=== PATIENT | female | born 1990 | race Caucasian/White ===

== ENCOUNTER 2023-09-13 18:05 | Day surgery (SDC) | payer OTHER, SELFPAY ==
[2023-09-13] VITALS (7 sets, daily range): BP systolic 114–128; BP diastolic 65–86; PULSE 71–104; RESP 14–18; TEMP 36.4–36.7; O2SAT 98–100; BMI 28.3
[2023-09-13 18:33] LABS: Bacteria 0 SEEN /hpf (None Seen); Mucous, Urine 0 SEEN /hpf (<or=2+); Red Blood Cells-Urine 0 SEEN /hpf (0-5)
[2023-09-13 18:34] LABS: Color, Urine Yellow (Yellow); Glucose, Dipstick Normal (Normal); Ketone-Dipstick Negative (Negative); Leukocyte Esterase-Dipstick 25 /ul (Negative); Nitrite-Dipstick Negative (Negative); Occult Blood-Urine 50 /ul (Negative); Protein-Dipstick Negative (Negative); Specific Gravity, Urine 1.005 (1.002-1.030); Urine Bilirubin Dipstick Negative (Negative); Urine Clarity Clear (Clear); Urine Urobilinogen Normal (Normal); Urine pH 6.5 (5.0 - 8.0)
[2023-09-13 18:39] LABS: Internal QC Validated? YES +Cl - CLEAR BKGD; Pregnancy, Urine Negative Negative; Squamous Epithelial Cells - UA 0-5 SEEN /hpf (5-10); White Blood Cells 0-5 SEEN /hpf (0-5)
[2023-09-13 19:17] LABS: Absolute Lymphocyte Count 1.04 X10^3/uL (0.83-4.51); Absolute Neutrophil Count 5.5 X10^3/uL (2.0-7.7); Basophil# 0.03 X10^3/uL; Basophil% 0.4 % (0-1); Eosinophil# 0.04 X10^3/uL; Eosinophils% 0.6 % (0-5); Hematocrit 39.5 % (37-47); Hemoglobin 13.1 g/dL (12.0-15.0); Lymphocyte # 1.04 X10^3/ul (0.83-4.51); Mean Corp Hgb Conc 33.2 g/dL (32-36); Mean Corpuscular Hgb 28.7 pg (27.0-32.0); Mean Corpuscular Volume 86.6 fL (81-99); Mean Platelet Vol. 10.2 fl (6.2-12.0); Monocyte# 0.36 X10^3/uL; Monocyte% 5.2 % (0-10); NRBC Flagged by Analyzer 0 % (0-5); Neutrophil # 5.46 X10^3/uL (2.7-7.7); Neutrophil % 78.5 % (47-70); Platelet Count 210 K/mm3 (150-450); RBC Distribution Width SD 38.2 fl (35.1-43.9); Red Blood Count 4.56 M/mm3 (4.2-5.4)
--- NOTE | 2023-09-13 19:20 | ED.VIS.FEGU ---
HPI HPI - Female History of Present Illness Chief Complaint: PFSH PFSH Medical History no medical history Allergy/AdvReac Type Severity Reaction Status Date / Time No Known Allergies Allergy Verified 09/13/23 18:06 Surgical History no surgical history Social History Smoking Status: Never smoker EXAM Physical Exam Const Vital Signs: 09/13/23 18:06 09/13/23 20:04 Temperature 97.6 F L Temperature Source Temporal Pulse Rate 104 H 86 Respiratory Rate 18 16 Blood Pressure 126/86 H 127/68 H Blood Pressure Mean 99 87 Pulse Ox 99 98 Oxygen Delivery Method Room Air Room Air MDM MDM MDM Narrative Medical decision making narrative: Patient presenting with vaginal bleeding and left pelvic pain. Its mild and she declines analgesia. Differential includes UTI, pyelonephritis, diverticulitis, , ectopic , ovarian cyst, ovarian torsion. CBC was obtained to assess white blood cell count, hemoglobin complaints. CMP to assess liver function renal function, electrolytes, glucose. Urinalysis to assess for UTI. Rh to assess blood type. Urinalysis negative for infection. CBC and CMP unremarkable. Urine hCG was negative however her serum quant was 90. Patient had obstetrics ultrasound which shows concern for ruptured ectopic in the left pelvis. Discussed the case with Dr. No who will come take the patient to the OR. Patient transported the OR at 10:05 PM in stable condition. Impression: 1. Ruptured ectopic Lab Data Attestation: I reviewed the patient's lab results. Labs: Laboratory Results - last 24 hr 09/13/23 09/13/23 18:25 19:07 WBC 7.0 RBC 4.56 Hgb 13.1 Hct 39.5 MCV 86.6 MCH 28.7 MCHC 33.2 RDW Std Deviation 38.2 RDW Coeff of Lizeth 12.0 Plt Count 210 MPV 10.2 Immature Gran % (Auto) 0.300 Neut % (Auto) 78.5 H Lymph % (Auto) 15.0 L [place] % (Auto) 5.2 Eos % (Auto) 0.6 Baso % (Auto) 0.4 Absolute Neuts (auto) 5.5 Absolute Lymphs (auto) 1.04 Nucleated RBC % 0 Sodium 137 Potassium 3.4 L Chloride 105 Carbon Dioxide 26.0 Anion Gap 6 BUN 6 L Creatinine 0.75 Estim Creat Clear Calc 115.62 Est GFR (MDRD) Af Amer 116 Est GFR (MDRD) Non-Af 96 BUN/Creatinine Ratio 8.0 L Glucose 100 Calcium 9.3 Total Bilirubin 0.60 AST 14 L ALT 19 Alkaline Phosphatase 49 Total Protein 7.3 Albumin 4.0 Globulin 3.3 Albumin/Globulin Ratio 1.2 HCG, Quant 90 H Urine Color Yellow Urine Clarity Clear Urine pH 6.5 Ur Specific Baxter 1.005 Urine Protein Negative Urine Glucose (UA) Normal Urine Ketones Negative Urine Occult Blood 50 H Urine Nitrite Negative Urine Bilirubin Negative Urine Urobilinogen Normal Ur Leukocyte Esterase 25 H Urine RBC 0 SEEN Urine WBC 0-5 SEEN Ur Squamous Epith Cells 0-5 SEEN Urine Bacteria 0 SEEN Urine Mucus 0 SEEN Urine Test Negative Blood Type A POSITIVE Radiography Diagnostic Testing: Clinical Impression(s) from Imaging Studies Obstetrics Ultrasound 09/13/23 19:49 IMPRESSION: Left adnexal complex mass in moderate complex fluid suspicious for ruptured ectopic Electronically Signed: Santhosh Kellogg MD at 21:22 EDT Reading Location ID and State: [address] [place] [address] Tel , Service support , ADDENDUM: 09/13/23 214 IMPRESSION: Left adnexal complex mass in moderate complex fluid suspicious for ruptured ectopic N.B. : Prateek Hayes DO, confirmed on 09/13/2023 21:35:47 (ET) that the referring physician received the results and does not require a verbal communication. Electronically Signed: Santhosh Kellogg MD at 21:22 EDT Reading Location ID and State: [facility] / [place] Tel , Service support , Discharge Plan Triage Chief Complaint: ED Provider: Prateek Hayes Dx/Rx/DC Orders Primary Care Provider: Care Physician,No Primary
[2023-09-13 19:33] LABS: ALB/GLOB Ratio 1.2 RATIO (0.9-2.4); AST(SGOT) 14 U/L (15-37); Alanine Aminotransfer ALT/SGPT 19 U/L (13-56); Alkaline Phosphatase 49 U/L (45-117); Anion Gap 6 (5-15); BUN 6 mg/dL (7-18); Calcium,Total 9.3 mg/dL (8.5-10.1); Chloride 105 mmol/L (98-107); Creatinine, Serum 0.75 mg/dL (0.55-1.02); EST Glomerular Filtration Rate 96 mL/min (>60); Est Glom Filt Rate - Afr Amer 116 mL/min (>60); Estimated Creatinine Clearance 115.62 ml/min; Globulin 3.3 g/dL (2.2-4.2); Glucose 100 mg/dL (74-106); Potassium 3.4 mmol/L (3.5-5.1); Protein, Total 7.3 g/dL (6.4-8.2); Sodium Level 137 mmol/L (136-145)
[2023-09-13 19:46] LABS: hCG Titer Quant., Serum 90 mIU/mL (1-3)
--- NOTE | 2023-09-13 19:49 | US_ITS ---
We are attempting to reach an attending provider to discuss findings. An addendum with communication details will be sent when the communication is complete. STUDY: FIRST TRIMESTER OBSTETRICAL ULTRASOUND REASON FOR EXAM: Female, 33 years old pain LMP: August 30, 2023 TECHNIQUE: Transvaginal TECHNICAL QUALITY: Adequate. PRIOR ULTRASOUND: None. FINDINGS: The estimated gestation age (EGA) by LMP is 2 weeks, 0 days. The estimated date of delivery (FREDERICK) by LMP is June 05, 2024. The uterus measures 9 x 5.6 x 5.3 cm. There is no demonstrated uterine fibroid. The cervix is closed. The right ovary measures 4.7 x 2.8 x 2.9 cm. There is no right ovarian cyst. There is no visualized right adnexal mass or complex lesion. The left ovary measures 3.4 x 2.9 x 1.9 cm. There is no left ovarian cyst. Heterogeneous mass medial to the left ovary measures 4.8 x 2.7 x 2.9 cm. Moderate complex free fluid. US/Transvaginal w/Preg US IMPRESSION: Left adnexal complex mass in moderate complex fluid suspicious for ruptured ectopic Electronically Signed: Santhosh Kellogg MD at 21:22 EDT ,
--- NOTE | 2023-09-13 22:07 | HP.PCM.OB_ITS ---
HPI - General General Date of Service: 09/13/23 HPI Narrative NEGIN PATTERSON, is a 33 F who presents with LLQ pain and positive test at home. Patient states the the pain was causing her to bend over to make it tolerable. She had a normal menses 32 days ago. Then 16 days ago she had light bleeding. The pain today caused her to call her layout artist and then take a test. PFSH PFSH Medical History no medical history Home Medications NK 09/13/23 [History Last Taken Unknown] Allergy/AdvReac Type Severity Reaction Status Date / Time No Known Allergies Allergy Verified 09/13/23 18:06 Surgical History no surgical history Social History Smoking Status: Never smoker Vital Signs Vital Signs Vital Signs: 09/13/23 18:06 09/13/23 22:00 09/13/23 22:00 Temperature 97.6 F L 97.8 F Temperature Source Temporal Temporal Pulse Rate 104 H 86 91 Respiratory Rate 18 16 16 Blood Pressure 126/86 H 127/68 H 128/74 H Blood Pressure Mean 99 87 92 Blood Pressure Source Monitor Blood Pressure Position Semi-Fowlers Blood Pressure Location Left Arm Pulse Ox 99 98 99 Oxygen Delivery Method Room Air Room Air Room Air Weight Weight: 175 lb 4.8 oz Body Mass Index (BMI) 28.3 Physical Exam Const alert, oriented x3 and no apparent distress Chest inspection of chest normal Resp normal respiratory effort GI soft to palpation and non-distended GI Narrative: mild LLQ tenderness, otherwise non-tender Extremity normal to inspection and no calf tenderness Neuro moves all extremities Labs Labs Labs: Blood Type A POSITIVE Hct 39.5 % (37-47) Hgb 13.1 g/dL (12.0-15.0) Obstetrics Ultrasound Assessment & Plan (1) Ruptured ectopic : COMMENT: with LLQ pain PLAN: Plan Pelvic US reviewed showing left adnexal mass and moderate complex fluid which is concerning for a ruptured ectopic . Discussed R/B/A of options and patient will proceed with diagnostic laparoscopy with possible partial or complete left salpingectomy. Informed consent signed.
--- NOTE | 2023-09-13 22:47 | DCINST_ITS ---
Discharge Instructions Diet Discharge Diet: No restrictions (Increase fluid intake for the next 48 hours.) Activity Additional Activity Instructions:: Ambulate often the next week after surgery. Nothing in the vagina for 5 days. Dressing / Incision Call your doctor if your incision/area has: Continuous Slow Oozing, Sudden Increased Bleeding, Increased Pain/ Swelling, Increased Redness and Foul Smelling Discharge Call your doctor if you observe: Fever of 101 or Higher Cleanse incision/area with: Soap & Water (Your incisions have skin glue, leave it on for at least 10 days or until it falls off. ) Follow Up Care Please Follow Up With: Hali Jacob MD When: Call [phone] for follow-up appointment or as needed Test Results: Test results from this visit will be discussed in further detail at your follow- up appointment, if applicable. Discharge Plan Admission Attending Provider: Yadi No Primary Care Provider: Care Physician,Nu Primary Discharge Orders/Prescriptions Prescriptions: No Action NK Referrals / Follow Up: Care Physician,No Primary [Primary Care Provider] - Disposition Disposition (needs filled in before D/C Order can be placed): Home, Self Care
--- NOTE | 2023-09-13 22:56 | OP.PCM_ITS ---
Problems Associated Problem List Diagnoses (1) Ruptured ectopic : Report of Operation Date of Procedure: 09/13/23 Pre-Operative Diagnosis: Ruptured left fallopian tube ectopic Post-Operative Diagnosis: Same Surgery/Procedure Performed:: Laparoscopic left salpingectomy and evacuation of hemoperitoneum Description of Surgical Findings:: Normal uterus and bilateral ovaries. Normal right fallopian tube. Moderate amount of blood and clot in the pelvis. Left fallopian tube with clot adherent and dilated distal portion of the tube consistent with ectopic . Act jacqueline bleeding from the end of the left fallopian tube. Surgeon: Hali Jacob batch room technician: Yadi No Type of Anesthesia: General Anesthesiologist: Naeem Jones Special Medications: none Specimen's removed: Left fallopian tube and ectopic Drains: none Estimated Blood Loss (mL): 50 Fluids Replaced: 550 Description of Procedure: The patient was taken to the operating room where she was prepped and draped in the dorsolithotomy position. A weighted speculum was placed in the vagina and the anterior lip of the cervix was grasped with a tenaculum. The Richelle uterine manipulator was placed and the remainder of the instruments were removed from the vagina. Attention was turned to the abdomen. All port sites were infiltrated with 0.5% Marcaine before skin incisions were made. A 5 mm intraumbilical incision was made. The anterior abdominal wall was tented up with 2 towel clamps while a 5 mm blade less trocar and sleeve were directly inserted. Intraperitoneal placement was confirmed with the laparoscope. The pneumoperitoneum was created and the underlying abdominal contents were intact. The patient was placed in Trendelenburg. Right and left lower quadrant ports were placed under direct visualization lateral to the inferior epigastric vessels. The bowel was swept away a there was a moderate amount of blood in the pelvis. This was suction irrigated. The left tube was bleeding from the fimbriated end and was noted to be dilated near the ampulla. The LigaSure device was used to clamp seal and transect the antimesenteric portions of the left tube to the cornual insertion of the uterus. The tube was amputated from the uterus and the pedicles were all confirmed to be hemostatic. The specimen was brought out through the 5 mm port. The pedicles were again examined and found to be hemostatic. Suction ballistics professor was used to irrigate out as much clot and blood as possible. The lateral ports were removed under direct visualization and no active bleeding was noted. The pneumoperitoneum was released. The skin incisions were closed with skin glue by Dr. No. The vaginal instruments were removed and the vaginal sweep was completed by me. There were no qualified residents present or available for the procedure. Dr. No provided camera guidance and tissue manipulation and assistance with closure during the procedure. The the remainder of the procedure was performed by me with assistance. All sponge and needle counts were correct and the patient was taken to the recovery room in stable condition. Grafts/Implants Used: none Procedure Start Time: 23:11 Procedure Stop Time: 23:31 Complications none Admit VTE Documentation VTE Present on Admission: No VTE Mechan Device Prophylaxis: SCD's VTE Pharm Prophylaxis ordered?: No Reason prophylaxis not ordered:: Drug Declined by Patient
--- NOTE | 2023-09-13 23:00 | FAL_PTH ---
PATIENT: NEGIN PATTERSON LOC: [facility] [place] U#:[id number] AGE/SX: 33/F ROOM: RE09/13/[address]: Dr. Yadi No MD : 1990 BED: DIS: 09/14/2023 SPEC #: [id number] RECD: 09/14/23 05:50 STATUS: MAC MISTY #: [id number] GINNA: 09/13/23 23:[address]: Yadi No DEPT: SURGICAL PATHOLOGY RECD BY: Loida Pearson ENTERED: 09/14/23 08:58 SP TYPE: ECTOPIC OTHR DR: No Primary Care Phys Tissues: ECTOPIC PREG Procedures: Surgery Specimen Level IV HEADER OPERATION: Laparoscopic, removal ectopic and left salpingectomy PRE-OP DIAGNOSIS: Ruptured ectopic TISSUE SUBMITTED: Left ectopic and left fallopian tube MICROSCOPIC DIAGNOSIS Left fallopian tube and ectopic , salpingectomy: Fallopian tube with focal area of congestion and hemorrhagic. See comment. SJ/mr 09/15/2023 COMMENT Entire specimen is submitted. Decidua or immature chorionic are not identified in the specimen, this information is discussed with Dr. No on 09/15/23. Clinical correlation and appropriate follow up are necessary. MICROSCOPIC DESCRIPTION Slides are reviewed. GROSS DESCRIPTION Received in fixative is one container labeled with the patient's name and designated Left ectopic and left fallopian tube. The specimen consists of a fallopian tube measuring 6.0cm in length and up to 1.0cm in diameter. Fimbrial end is identified. A few minute fragments of blood clots are noted. No obvious tissue is identified. The entire specimen is submitted in three cassettes. DELLA/ 09/14/23 TC:5 CPT:10409
[2023-09-13] MEDS: Lidocaine 1% /Epi 1:100 (20ml) 20 ML Vial (23:11)
[2023-09-14] VITALS: BP 127/68; PULSE 77; RESP 18; O2SAT 100
[2023-09-14 00:17] VITALS: BP 115/66; BP 127/68; PULSE 80; RESP 18; TEMP 36.7; O2SAT 100
[2023-09-14] MEDS: Lactated Ringers 1,000 ML 75 ML IV (00:25)
[2023-09-14 00:40] VITALS: BP 127/68
--- NOTE | 2023-09-14 00:47 | SUR.PHASEII ---
PATIENT WAS WHEELED OUT BY BONI RN TO FAMILY CAR. PATIENT AND SPOUSE COMFORTABLE LEAVING AND DENIED ANY QUESTIONS.
== END 2023-09-14 00:48 | disposition home or self-care (01) ==
LOC: ED 19:58 → SDC 21:54 → AC 21:55
PROVIDERS: Obstetrics & Gynecology; Emergency Provider Student in an Organized Health Care Education/Training Program; Referring Provider Obstetrics & Gynecology; Visit Provider Obstetrics & Gynecology
PROC: 10T24ZZ Resection of Products of Conception, Ectopic, Percutaneous Endoscopic Approach (ICD-10-PCS; CPT 59150; principal; 2023-09-13 22:45)
DX: O00.102 Left tubal pregnancy without intrauterine pregnancy (principal)
CPT/HCPCS: 59151; 00840; 76817; 80053; 81001; 81025; 84702; 85025; 86900; 86901; 88305; 99283; J7030; A4216; J2405